=== PATIENT | female | born 2000 | race Caucasian/White ===

== ENCOUNTER 2025-05-07 06:13 | Day surgery (SDC) | payer OTHER, SELFPAY | END 2025-05-07 14:46 | disposition home or self-care (01) | LOC: GI 06:13 | PROVIDERS: ATTENDING PHYSICIAN Internal Medicine | DX: R10.13 Epigastric pain (principal); K29.70 Gastritis, unspecified, without bleeding; K22.89 Other specified disease of esophagus; K20.90 Esophagitis, unspecified without bleeding | CPT/HCPCS: 43239; 88305; 88342 ==